=== PATIENT | female | born 1995 | race Caucasian/White ===

== ENCOUNTER 2024-10-15 11:14 | Emergency (ER) | payer BC, MEDICAID, SELFPAY ==
--- OUTSIDE RECORDS SUMMARY | 2024-10-15 11:17 | XMS_ITS | Clinical Summary ---
Author Organization [facility] Address [address] [place] [address] Care Team Providers Care Wrapper And Preserver Name Role Phone Ramon Sera Pan APRN-SERVICE DISMANTLER Primary Care Provider Source Comments [facility],non-owned Affiliates and Associated Physician Practices is amultiple site organization consisting of ambulatory clinics and hospital sitesin [place], [place], [place] and [place]. This disclosure is being madepursuant to the Care Everywhere program and may not contain all information available regarding this patient. Last updated 17.[facility] Allergies No known active allergies Medications * Be aware that medications may not be up to date on this document. Alwaysverify current medications with the patient. ibuprofen (MOTRIN) 600 MG tablet Take 1 Tab by mouth every 6 hours as needed for Pain 30 Tab 0 5 Active norethindrone-e thinyl estradiol (LOESTRIN .5) 1.5-30 MG-MCG tablet Take 1 Tab by mouth once daily Active omeprazole EC (PRILOSEC OTC) 20 MG tablet Take 1 Tab by mouth daily before breakfast 30 Tab 7 Active ondansetron (ZOFRAN) 4 MG tablet Take 1 Tab by mouth every 8 hours as needed for Nausea/Vomitin g 15 Tab 7 Active sucralfate (CARAFATE) 1 GM tablet Take 1 Tab by mouth 2 times daily,before breakfast and supper 30 Tab 7 Active Immunizations Immunization Administration Dates Next Due INFLUENZA VACCINE 2013 Family History Medical History Relation Name Comments Lupus Maternal Aunt Celiac Disease Mother Lupus Sister Asthma Neg Hx Cystic Fibrosis Neg Hx Relation Name Status Comments Maternal Aunt Mother Sister Social History Tobacco Use Types Packs/Day Years Used Date Smoking Tobacco: Never Smokeless Tobacco: Never Alcohol Use Standard Drinks/Week Comments No 0 (1 standard drink = 0.6 oz pur e alcohol) Comments No Sex and Gender Information Value Date Recorded Sex Assigned at Not on file Legal Sex Female 9:30 AM QC CHEMIST Gender Identity Not on file Sexual Orientation Not on file Last Filed Vital Signs Vital Sign Reading Time Taken Comments Blood Pressure 105/57 11/29/2016 11:21 AM CDT Pulse 69 11/29/2016 11:21 AM CDT Temperature 36.2 C (97.2 F) 11/29/2016 11:21 AM CDT Respiratory Rate 17 11/29/2016 11:21 AM CDT Oxygen Saturation 99% 09/11/2013 11:04 AM CDT Inhaled Oxygen Concentration - - Weight 49.1 kg (108 lb 4.8 oz) 11/29/2016 11:21 AM CDT Height 160 cm (5' 3) 11/29/2016 11:21 AM CDT Body Mass Index 19.18 11/29/2016 11:21 AM CDT Plan of Treatment Health Maintenance Due Date Last Done Comments HIV SCREENING 01/14/2012 HEPATITIS C SCREENING 01/09/2015 DTAP/TDAP/TD VACCINES (1 - Tdap) 01/14/2016 HEPATITIS B VACCINE (1 of 3 - 19+ 3-dose series) 01/14/2016 COVID-19 VACCINE ( - 2023-2 5 season) 2023 HPV VACCINE (1 - 3-dose SCDM series) 01/14/2024 DEPRESSION SCREENING 02/19/2024 INFLUENZA VACCINE (#1) 2024 3, 02/21/2009 ZOSTER VACCINE (1 of 2) 2047 HIB VACCINE Aged Out No longer eligi ble based on patient's age to complete this topic MENINGOCOCCAL (Group B) VACCINE SHARED DECISION-MAKING Aged Out No longer eligible based on patient's age to complete this topic MENINGOCOCCAL GROUPS A/C/Y/W VACCINE Aged Out No longer eligible b ased on patient's age to complete this topic PNEUMOCOCCAL VACCINE Aged Out No long er eligible based on patient's age to complete this topic Insurance [facility] Care Teams Wrapper And Preserver Relationship Specialty Start Date End Date Sera Navarro APRN-SERVICE DISMANTLER [address] [place] [address] Dr Campos [address] [place] [address] [phone] PCP - General Nurse Practitioner 11/16/16
--- OUTSIDE RECORDS SUMMARY | 2024-10-15 11:17 | XMS_ITS | Clinical Summary ---
Author Organization [facility] Address [address] [facility] [place] [address] Phone Care Team Providers Care Technical Support Representative Name Role Phone Maggie Vigil MD Primary Care Provider [phone] Allergies No known active allergies Medications Etonogestrel (IMPLANON) 68 mg Sdrm Impl 1 Device by Subdermal route. 3 Active norethindrone-e thin estradiol (ORTHO-NOVUM , ,) 1-35 mg-mcg Oral tablet Take 1 Tab by mouth daily. 28 Tab 0 3 Active Active Problems No known active problems Family History Medical History Relation Name Comments Obsessive Compulsive Disorder Father Other Father Alcoholism Blood Disorder Maternal Grandmother facto r V Celiac Disease Mother Thyroid Disease Mother Cancer Other great grand mot her-maternal cervical Other Sister gastroparesis Breast Cancer Neg Hx Colon Cancer Neg Hx Ovarian Cancer Neg Hx Relation Name Status Comments Father Alive Maternal Grandmother Mother Alive Other Sister Alive Social History Tobacco Use Types Packs/Day Years Used Date Smoking Tobacco: Never Smokeless Tobacco: Never Alcohol Use Standard Drinks/Week Comments No 0 (1 standard drink = 0.6 oz pur e alcohol) Comments No Sex and Gender Information Value Date Recorded Sex Assigned at Not on file Legal Sex Female 11:11 AM WELDER TOOL AND DIE Gender Identity Not on file Sexual Orientation Not on file Occupation Industry Job Start Date Job End Date student Not on file Not on file Not on file Last Filed Vital Signs Vital Sign Reading Time Taken Comments Blood Pressure 105/55 02/22/2012 11:06 AM WELDER TOOL AND DIE Pulse - - Temperature - - Respiratory Rate - - Oxygen Saturation - - Inhaled Oxygen Concentration - - Weight 48.5 kg (107 lb) 02/22/2012 11:06 AM WELDER TOOL AND DIE Height 160 cm (5' 3) 02/22/2012 11:06 AM WELDER TOOL AND DIE Body Mass Index 18.95 02/22/2012 11:06 AM WELDER TOOL AND DIE Plan of Treatment Health Maintenance Due Date Last Done Comments DTAP/TDAP/TD VACCINES (1 - Tdap) 01/14/2016 HEPATITIS B VACCINES (1 of 3 - 19+ 3-dose series) 12/20 CERVICAL CANCER SCREENING 2018 HPV/Cotest (21-29) 2018 PAP SMEAR 2018 HPV VACCINES (1 - 3-dose SCDM series) 01/14/2024 INFLUENZA VACCINE (#1) 2024 Care Teams Technical Support Representative Relationship Specialty Start Date End Date Maggie Vigil MD [address] [place] [address] PCP - General Pediatrics 01/28/12
--- OUTSIDE RECORDS SUMMARY | 2024-10-15 11:17 | XMS_ITS | Clinical Summary ---
Author Organization [facility] Address [address] [place] [address] Care Team Providers Care Developer Support Engineer Name Role Phone Sera Navarro NP Primary Care Provider [phone] Saran Bah MD Unavailable [phone] Allergies Active Allergy Reactions Criticality Noted Date Comments Lactose Diarrhea Low 06/04/2020 Medications , 1 mg-20 mcg (21)/75 mg (7) per tablet Take 1 tablet by mouth daily 7 Active ondansetron ODT (ZOFRAN-ODT) 4 mg disintegrating tablet Take 1 tablet (4 mg total) by mouth every 4 (four) hours as needed for nausea or vomiting Active HYDROcodone-acetami nophen (NORCO) 5-325 mg per tabletIndications:P ain Take 1-2 tablets by mouth every 4 (four) hours as needed for pain Max 10 Pills/day 40 tablet 0 Active hydrOXYzine (ATARAX) 25 mg tablet Take 1 tablet (25 mg total) by mouth nightly as needed Active ibuprofen (ADVIL,MOTRIN) 600 mg tablet Take 1 tablet (600 mg total) by mouth every 6 (six) hours as needed 5 Active sertraline (ZOLOFT) 25 mg tablet Take 1 tablet (25 mg total) by mouth daily 4 Active promethazine (PHENERGAN) 25 mg tablet Take 1 tablet (25 mg total) by mouth every 6 (six) hours as needed for nausea or vomiting 30 tablet 3 5 Active Active Problems Problem Noted Date Diagnosed Date Dysfunctional gallbladder 09/20/2019 Hypokalemia 09/19/2019 Leukocytosis 09/19/2019 Nausea & vomiting 09/18/2019 RUQ abdominal pain 09/18/2019 Increased anion gap metabolic acidosis 0 Scoliosis 07/04/2013 Overview (05/25/2016): Scoliosis Bronchospasm 02/17/2013 Overview (05/25/2016): Bronchospasm Sinusitis 02/17/2013 Overview (05/25/2016): Sinusitis History of glandular fever 12/15/2012 Overview (05/25/2016): History of infectious mononucleosis Amygdalolith 10/07/2012 Overview (05/25/2016): Tonsillolith Ganglion 10/29/2011 Overview (05/25/2016): Ganglion cyst Ocular hypertension 10/26/2011 Overview (05/25/2016): Ocular hypertension Immunizations Immunization Administration Dates Next Due DTaP 01/15/2001, 9,1997,05/19,1997 HPV, Quadrivalent 02/21/2009,10/13/2008,08/19/19 09 Hep B, Adolescent or Pediatric 1997,1997,1997 Hib (HbOC) 04/18/1998, 8,1997,03/19 IPV 01/15/2001,1997,1997 Influenza, Split 01/21/2013,03/05/2012 Influenza, Trivalent, IM (MDV) 02/21/2009 MMR 01/15/2001,01/21/1998 Meningococcal Polysaccharide (Menomune) 04/21/2011 OPV 04/18/1998 Tdap 08/18/2008 Varicella 01/21/1998 Surgical History Surgery Date Site/Laterality Comments CYST REMOVAL CHOLECYSTECTOMY 02/18/2019 - 02/18/2020 ESOPHAGOGASTRODUODENOSCOPY 02/18/2022 - 02/17/2023 Medical History Medical History Date Comments Multiple environmental allergies Allergies, environmental; Comments: GDS 11/07/2015 - Marijuana use Family History Medical History Relation Name Comments Other Mother Allergy SULFA; /Celiac disease; Other Other 1 1 Diabetes Other 2 Family history of Diabetes mellitus; Other Other 3 1 Other Other 4 No family histo ry of Sudden <50; Other Other 5 1 Other Other 6 1 Other Other 7 1 Other Other 8 Family history of PE/DVT; Relation Name Status Comments Mother Other 1 Other 2 Other 3 Other 4 Other 5 Other 6 Other 7 Other 8 Social History Tobacco Use Types Packs/Day Years Used Date Smoking Tobacco: Never Smokeless Tobacco: Never Alcohol Use Standard Drinks/Week Comments No 0 (1 standard drink = 0.6 oz pur e alcohol) AUDIT-C Answer Date Recorded Q1: How often do you have a drink containing alc ohol? Monthly or less 05/22/2024 Q2: How many drinks containi ng alcohol do you have on a typical day when you are drinking? 1 or 2 05/22/2024 Frequency of Binge Drinking Not on file 05/2024 Personal Safety Answer Date Recorded Have you ever been in or are you currently in a harmful physical or emotional relationship or is someone making you feel afraid or unsafe? Denies 08/31/2023 Comments No Sex and Gender Information Value Date Recorded Sex Assigned at Not on file Legal Sex Female 5:37 AM REEXAMINER Gender Identity Not on file Sexual Orientation Not on file Obstetrics History Last Filed Vital Signs Vital Sign Reading Time Taken Comments Blood Pressure 112/72 05/22/2024 3:30 PM CDT Pulse 80 05/22/2024 3:30 PM CDT Temperature 36.6 C (97.8 F) 08/31/2023 12:07 PM CDT Respiratory Rate 18 08/31/2023 12:07 PM CDT Oxygen Saturation 99% 05/22/2024 3:30 PM CDT Inhaled Oxygen Concentration - - Weight 62 kg (136 lb 11.2 oz) 05/22/2024 3:30 PM CDT Height 160 cm (5' 3) 05/22/2024 3:30 PM CDT Body Mass Index 24.22 05/22/2024 3:30 PM CDT Plan of Treatment Health Maintenance Due Date Last Done Comments Cervical Cancer Screening 1997 Depression Screening 1997 Hepatitis C Screening 1997 Varicella Vaccines (2 of 2 - 2-dose childhood series) 02/12/2001 01/21/1998 Regular Well Visit/Exam 18-64 2015 DTaP/Tdap/Td Vaccine (7 - Td or Tdap) 08/18/2018 08/18/2008, 01/15/2001, 04/18/1998, Additional history exists Covid-19 Vaccine ( season) 2023 07/08/2020, 06/17/2020 Influenza Vaccine (#1) 2024 3, 2013, 03/05/2012, Additional history exists Hepatitis B Screening Completed 1997 , 1997, 1997 HPV Vaccines Completed 02/21/2009, 09/19, 08/18/2008 Pneumococcal vaccine <65 Aged Out No longer eligible based on patient's age to complete this topic Insurance [facility] Advance Directives For more information, please contact: [phone] * Full Code (Latest Code Status on File) Date Activated Date Inactivated Comments 09/18/2019 8:15 PM 09/21/2019 6:06 PM Care Teams Developer Support Engineer Relationship Specialty Start Date End Date Sera Navarro NP PCP - General Nurse Practitioner 02/15/17 Saran Bah MD Consulting Physician General Surgery 09/21/19
[2024-10-15 11:18] VITALS: BP 126/79; PULSE 100; RESP 20; TEMP 36.9; O2SAT 100
--- NOTE | 2024-10-15 11:18 | ED_ITS ---
HPI - Skin/Abscess/Foreign Bdy General Chief complaint: Skin/Abscess/Foreign Body Stated complaint: Right leg bug bite on calf Time Seen by Provider: 10/15/24 11:18 Source: patient Mode of arrival: ambulatory Limitations: no limitations History of Present Illness HPI narrative: Selina is a 29-year-old female patient presenting to the clinic today with complaints of a possible insect bite to her right posterior calf x2 days. States the area of the bite was red, itchy, and tender to touch. Developed some nausea, diarrhea, joint pain, and feeling clammy. States she has recently been camping over the past 2 weeks. Did not see a tick or any other insect that possibly bit her. She denies any chest pain or shortness of breath. Has applied some hydrocortisone cream over the insect bite. States the joint pain it is in her elbows, wrists, and knees rates her pain a 2/10 and her insect bite discomfort is a 4/10. Related Data Home Medications ?Medication ?Instructions ?Recorded ?Confirmed ?Last Taken ?Type Zoloft 10/15/24 Unknown History Allergies Allergy/AdvReac Type Severity Reaction Status Date / Time No Known Allergies Allergy Verified 10/15/24 11:26 Review of Systems Review of Systems: Pertinent positives per HPI. Patient denies any fever, chills, headache, visual changes, dizziness, cough, runny nose, sore throat, shortness of breath, chest pain, palpitations,vomiting, constipation, abdominal pain, or any urinary issues. PMFSH Comments At the time of my signature, I reviewed and agree with the nursing past medical, surgical, social, and family history. There is no relevant family history pertinent to the patient complaint. Exam Narrative: General: Well-developed, well nourished, in no apparent distress Head: Normocephalic, atraumatic. Cardio: Regular rate and rhythm, s1 and s2 normal, no murmur appreciated. Resp: Clear to auscultation bilaterally, no rhonchi, rales, wheezing or rubs. Musculoskeletal: No deformity, tender to palpation over bilateral elbows, bilateral wrists, and bilateral knees, grossly normal range of motion, muscle strength strong and equal, peripheral pulse strong, no edema, no cyanosis, normal gait and station Integumentary: [place], warm, and dry, insect bite to the right posterior calf with mild localized redness and swelling without induration. Course Course Emergency Course: Portions of this record may have been created with voice recognition software. Level of Care: Express Care Visit Vital Signs Vital signs: Vital Signs Temperature 36.9 C 10/15/24 11:18 Pulse Rate 100 10/15/24 11:18 Respiratory Rate 20 10/15/24 11:18 Blood Pressure 126/79 10/15/24 11:18 Pulse Oximetry 100 10/15/24 11:18 Oxygen Delivery Room Air 10/15/24 11:18 Temperature 36.9 C 10/15/24 11:18 Pulse Rate 100 10/15/24 11:18 Respiratory Rate 20 10/15/24 11:18 Blood Pressure 126/79 10/15/24 11:18 Pulse Oximetry 100 10/15/24 11:18 Oxygen Delivery Room Air 10/15/24 11:18 Vital signs reviewed MDM - Skin/Abscess/Foreign Bdy MDM Narrative Medical decision making narrative: At the time of visit patient is resting comfortably on the exam table. Patient appears to be nontoxic. Complaints of a possible insect bite to her right posterior calf x2 days. States the area of the bite was red, itchy, and tender to touch. Developed some nausea, diarrhea, joint pain, and feeling clammy. States she has recently been camping over the past 2 weeks. Did not see a tick or any other insect that possibly bit her. She denies any chest pain or shortness of breath. Has applied some hydrocortisone cream over the insect bite. States the joint pain it is in her elbows, wrists, and knees rates her pain a 2/10 and her insect bite discomfort is a 4/10. No URI symptoms or sore throat. Patient is afebrile and vital signs were stable. On exam patient has a insect bite to the right posterior calf with mild erythema and redness surrounding the area. No obvious remnants still remain in the skin. Plan: Suspect patient has had an insect bite with general malaise and body aches with nausea and diarrhea. Possibly tick-illness related. Will send in prescription for doxycycline and Zofran. Will have her have close follow-up with her PCP in if her symptoms worsen she is to go to the emergency room. Supportive measures were discussed with the patient and they voiced understanding discharge instructions and agrees to treatment plan. Return precautions reviewed Differential Diagnosis Differential diagnosis: Likely abscess of skin or subcutaneous tissue, viral exanthem, dermatophytosis, urticaria, herpes zoster, allergic reaction to drug, cellulitis, eczema, insect bites, impetigo, contact dermatitis and other (Tick- borne illness) Discharge Plan Discharge Clinical Impression: Insect bite Patient Disposition: Home Condition: Stable Instructions: Antibiotic Form, Insect Bite or Sting (ED), Tick Bite (ED) Additional Instructions: Take doxycycline and ondansetron as prescribed Increase fluids and stay well hydrated May take Tylenol/Motrin as needed for pain or fever as per bottle directions May take Imodium as needed for diarrhea as long as there is no blood in your stool Follow-up with your PCP in 3-5 days if symptoms persist Recommend taking a daily probiotic 2 hours before 2 hours after the antibiotic dosing. Go to the emergency room if symptoms worsen-you develop fever not controlled by Tylenol Motrin, increase and body aches, rash, headaches, dehydration, confusion, fatigue/lethargy, chest pain, or shortness of breath Patient Language: Latvian Prescriptions: New doxycycline monohydrate 100 mg capsule 100 mg PO BID 7 Days Qty: 14 0RF ondansetron 8 mg tablet,disintegrating 8 mg PO Q8H PRN (Reason: nausea and vomiting) 3 Days Qty: 10 0RF No Action Zoloft Follow-up/Referrals: [facility] [Primary Care Provider, Unknown] Stand Alone Forms: Work/School Release IP Time of Disposition: 11:33 Quality NIHSS Nursing Documentation ED NIHSS nursing documentation: reviewed/agree
== END 2024-10-15 11:35 | disposition home or self-care (01) ==
PROVIDERS: Emergency Provider Nurse Practitioner Family
DX: S80.861A Insect bite (nonvenomous), right lower leg, initial encounter (principal); W57.XXXA Bitten or stung by nonvenomous insect and other nonvenomous arthropods, initial encounter; F41.9 Anxiety disorder, unspecified; F32.A Depression, unspecified
CPT/HCPCS: 99213; G0463